=== PATIENT | female | born 1945 | race African-American/Black ===

== ENCOUNTER 2024-07-12 05:22 | Emergency (ER) | payer MEDICARE ==
[~2024-07-12] VITALS: Ht 162.6 cm; Wt 80.0 kg
[2024-07-12] VITALS (7 sets, daily range): BP systolic 102–141; BP diastolic 56–84
[~2024-07-12 05:22] MED LIST: AMLODIPINE BES2.5 MG PO; ASPIRINCHW 81MG PO; CARVEDILOL25 MG PO; ENTECAVIR0.5 MG PO; LANTUS100 UNIT SC; MAXZIDE-25MG1 COMBO PO; VITAMIN D-32000 UNI1 PO
[2024-07-12] MEDS ORDERED: SODIUM CHLORIDE 0.9% 1,000 ML IV ONE (05:45)
[2024-07-12] MEDS ORDERED: PROTONIX40 M2 PO (05:57)
[2024-07-12] MEDS ORDERED: MIDODRINE HYDR2.5 MG PO (06:01)
[2024-07-12] MEDS ORDERED: COLACE100 MG PO (06:02)
[2024-07-12] MEDS ORDERED: [UNRECOGNIZED DRUG - OTHER] PO (06:03)
[2024-07-12] MEDS ORDERED: OXYCODONE5 M1 PO (06:05)
[2024-07-12] MEDS ORDERED: CONSTULOSE10 GM/15 M PO (06:08)
[2024-07-12] MEDS ORDERED: APAP325 MG PO (06:12)
[2024-07-12] MEDS ORDERED: DULCOLAX10 MG RE (06:13)
[2024-07-12] MEDS ORDERED: MIRALAX17 GM PO (06:13)
[2024-07-12] MEDS ORDERED: MILK OF MAGNESI1 SUS PO (06:14)
[2024-07-12 06:20] LABS: BASO% 1.2 % (0-3); EOS% 6.7 % (0-8); HEMATOCRIT 25.6 % (37.0-47.0); HEMOGLOBIN 7.5 g/dl (12.0-16.0); IMMATURE GRANULOCYTES 0.5 % (0.0-5.0); LYMPH% 14.5 % (15-41); MEAN CELL VOLUME 96.2 fL CALC (80.0-100.0); MEAN CORPUSCULAR HGB 28.2 pG CALC (26.0-32.0); MEAN CORPUSCULAR HGB CONC 29.3 g/dL CAL (32.0-36.0); MONO% 11.3 % (2-13); NEUT# 4.3 thou/uL (2.00-7.15); NEUT% 65.8 % (42-76); RED BLOOD COUNT 2.66 mill/uL (4.20-5.60); RED CELL DISTRI WIDTH 17.6 % (11.5-15.5)
[2024-07-12 06:32] LABS: TOTAL PROTEIN 6.3 g/dL (6.3-8.2)
[2024-07-12 06:48] LABS: PROTHROMBIN TIME 10.9 SECONDS (9.0-12.5)
[2024-07-12 06:52] LABS: ACT PARTIAL THROMBO TIME 18.1 SECONDS (20.0-32.5)
[2024-07-12 06:54] LABS: CREATININE 5.5 mg/dL (0.5-1.0)
[2024-07-12 06:55] LABS: ALBUMIN 2.7 g/dL (3.2-5.0); BILIRUBIN, TOTAL 0.8 mg/dL (0.02-1.3); POTASSIUM 5.2 mmol/l (3.5-5.1)
[2024-07-12] MEDS ORDERED: Pantoprazole Sodium 40 MG VIAL (Protonix) IV ONE (07:40)
== END 2024-07-12 10:00 | disposition short-term general hospital (02) ==
LOC: ED 05:22
PROVIDERS: Family Medicine
PROC: 30233N1 Transfusion of Nonautologous Red Blood Cells into Peripheral Vein, Percutaneous Approach (ICD-10-PCS; principal; 2024-07-12)
DX: K92.1 Melena (principal); D64.9 Anemia, unspecified; K56.41 Fecal impaction; I12.0 Hypertensive chronic kidney disease with stage 5 chronic kidney disease or end stage renal disease; N18.6 End stage renal disease; K74.60 Unspecified cirrhosis of liver; Z99.2 Dependence on renal dialysis; Z79.82 Long term (current) use of aspirin
CPT/HCPCS: J2470; P9016

== ENCOUNTER 2024-11-04 10:56 | Emergency (ER) | payer MEDICARE ==
[2024-11-04] VITALS (12 sets, daily range): BP systolic 137–192; BP diastolic 66–84
[~2024-11-04] VITALS: Ht 162.6 cm; Wt 67.0 kg
[~2024-11-04 10:56] MED LIST changes: +APAP325 MG PO; +COLACE100 MG PO; +CONSTULOSE10 GM/15 M PO; +DULCOLAX10 MG RE; +MIDODRINE HYDR2.5 MG PO; +MILK OF MAGNESI1 SUS PO; +MIRALAX17 GM PO; +OXYCODONE5 M1 PO; +PROTONIX40 M2 PO; +[UNRECOGNIZED DRUG - OTHER] PO
[2024-11-04] MEDS ORDERED: ISOVUE-300 (Iopamidol) 100 ML SDV IV ONE (11:40)
[2024-11-04 11:58] LABS: BASO% 0.4 % (0-3); EOS% 9.1 % (0-8); HEMATOCRIT 42.5 % (37.0-47.0); IMMATURE GRANULOCYTES 0.3 % (0.0-5.0); LYMPH% 10.6 % (15-41); MEAN CORPUSCULAR HGB 26.3 pG CALC (26.0-32.0); MEAN CORPUSCULAR HGB CONC 30.6 g/dL CAL (32.0-36.0); MONO% 11.3 % (2-13); NEUT# 5.04 thou/uL (2.00-7.15); NEUT% 68.3 % (42-76); RED BLOOD COUNT 4.94 mill/uL (4.20-5.60); RED CELL DISTRI WIDTH 16.8 % (11.5-15.5)
[2024-11-04 12:19] LABS: BILIRUBIN, TOTAL 0.7 mg/dL (0.02-1.3); POTASSIUM 4.9 mmol/l (3.5-5.1)
[2024-11-04 12:20] LABS: CREATININE 7.8 mg/dL (0.5-1.0); TOTAL PROTEIN 8.4 g/dL (6.3-8.2)
== END 2024-11-04 15:50 | disposition home or self-care (01) ==
LOC: ED 10:56
PROVIDERS: Family Medicine
DX: R55 Syncope and collapse (principal); I12.0 Hypertensive chronic kidney disease with stage 5 chronic kidney disease or end stage renal disease; N18.6 End stage renal disease; Z99.2 Dependence on renal dialysis; K74.60 Unspecified cirrhosis of liver